=== PATIENT | male | born 1985 | race Caucasian/White ===

== ENCOUNTER 2023-06-01 11:22 | Emergency (ER) | payer OTHER ==
[2023-06-01 11:39] VITALS: BMI 27.8
[2023-06-01] MEDS ORDERED: amLODIPine BESYLATE 10 MG TABLET (FP) ONE ×2 (12:12→12:26)
[2023-06-01] MEDS: amLODIPine BESYLATE 10 MG TABLET (FP) PO ONE (12:15)
[2023-06-01] MEDS ORDERED: METHOCARBAMOL 500 MG TABLET ONE (13:31)
[2023-06-01] MEDS ORDERED: KETOROLAC TROMETHAMINE 30 MG/1 ML VIAL ONE ×2 (13:31)
[2023-06-01] MEDS: KETOROLAC TROMETHAMINE 30 MG/1 ML VIAL IM ONE (13:43)
[2023-06-01] MEDS: METHOCARBAMOL 500 MG TABLET PO ONE (13:43)
[2023-06-01 15:13] VITALS: BP 174/107; PULSE 68; RESP 16; TEMP 98
== END 2023-06-01 16:28 | disposition home or self-care (01) ==
LOC: JERFT 11:22
PROC: 3E0233Z Introduction of Anti-inflammatory into Muscle, Percutaneous Approach (ICD-10-PCS; principal; 2023-06-01)
DX: M54.41 Lumbago with sciatica, right side (principal); I10 Essential (primary) hypertension; W01.0XXA Fall on same level from slipping, tripping and stumbling without subsequent striking against object, initial encounter; Y99.0 Civilian activity done for income or pay
CPT/HCPCS: 72070-TC-FY; 72100-TC-FY; 99284-25